=== PATIENT | male | born 1995 | race Caucasian/White ===

== ENCOUNTER 2020-04-06 05:44 | Emergency (ER) | payer BC, OTHER ==
[2020-04-06 05:54] VITALS: BP 164/114; PULSE 85
--- NOTE | 2020-04-06 06:07 | EDM.PDOC ---
ED HPI GENERAL MEDICAL PROBLEM - General Chief Complaint: ENT Problem Stated Complaint: NECK/JAW PAIN Time Seen by Provider: 04/06/20 05:59 Source of Information: Reports: Patient, RN Notes Reviewed History Limitations: Reports: No Limitations - History of Present Illness INITIAL COMMENTS - FREE TEXT/NARRATIVE: 24-year-old gentleman presents emergency department a complaint of dental pain, he states it started a couple days ago 1 painful tooth on his right side lower jaw he has not had any fevers he has had some swelling in that area as well as on the face no dental care Treatments [employer]: Reports: Acetaminophen Left Face/Facial Pain Score (Numeric/FACES): 8 - Related Data Allergies Allergy/AdvReac Type Severity Reaction Status Date / Time No Known Allergies Allergy Verified 04/06/20 05:52 Home Meds: Home Meds NK [No Known Home Meds] 08/24/15 [History] Past Medical History Other Musculoskeletal History: Cysts and bone spurs to bilateral feet, bone spur repair with hardware. - Past Surgical History Other Musculoskeletal Surgeries/Procedures:: Foot procedures to bilateral feet. ruptured acl right leg Social & Family History - Family History Family Medical History: Noncontributory - Tobacco Use Smoking Status *Q: Current Every Day Smoker Years of Tobacco use: 1 Packs/Tins Daily: 0.1 - Caffeine Use Caffeine Use: Reports: None - Recreational Drug Use Recreational Drug Use: No ED ROS ENT - Review of Systems Review Of Systems: See Below Constitutional: Denies: Fever HEENT: Reports: Dental Pain Respiratory: Reports: No Symptoms Cardiovascular: Reports: No Symptoms GI/Abdominal: Reports: No Symptoms : Reports: No Symptoms ED EXAM, ENT - Physical Exam Exam: See Below Text/Narrative:: Mucosa is moist and pink no erythema exudate known soft palate tongue is midline uvula is midline dentition is poor tooth #34 is broken, extreme tenderness around that area tenderness down into the neck on the right side otherwise no lymphadenopathy Exam Limited By: No Limitations General Appearance: Alert, WD/WN, No Apparent Distress Respiratory/Chest: No Respiratory Distress Course - Vital Signs Last Recorded V/S: Last Vital Signs Temp 96.2 F L 04/06/20 05:53 Pulse 85 04/06/20 05:53 Resp 16 04/06/20 05:53 BP 164/114 H 04/06/20 05:53 Pulse Ox 97 04/06/20 05:53 Departure - Departure Time of Disposition: 06:05 Disposition: Home, Self-Care 01 Condition: Fair Clinical Impression: Dental abscess - Discharge Information Instructions: Dental Abscess, [id number] Referrals: PCP,None [Primary Care Provider] - Additional Instructions: Take full course of antibiotics, use ibuprofen for baseline pain control use hydrocodone for breakthrough pain, please follow-up with the dental clinic April 07 8 AM in the morning Sepsis Event Note - Evaluation Sepsis Screening Result: No Definite Risk - Focused Exam Vital Signs: Vital Signs Temp Pulse Resp BP Pulse Ox 04/06/20 05:53 96.2 F L 85 16 164/114 H 97 Date Exam was Performed: 04/06/20 Time Exam was Performed: 06:02 - Assessment/Plan Plan: Assessment Acuity = acute Site and laterality = dental abscess tooth #32 Etiology = dental caries Manifestations = pain Location of injury = Home Lab values = none Plan Placed on amoxicillin 500 mg p.o. 3 times daily x10 days, hydrocodone 5/325 1 tab p.o. 3 times daily PRN total #10 referral is sent up to the dental clinic Tuesday 8 AM This note was dictated using [employer] voice recognition software please call with any questions on syntax or grammar.
== END 2020-04-06 06:14 | disposition home or self-care (01) ==
LOC: JP.ED 05:44
DX: K04.7 Periapical abscess without sinus (principal); F17.210 Nicotine dependence, cigarettes, uncomplicated
CPT/HCPCS: 99282

== ENCOUNTER 2021-11-16 01:05 | Emergency (ER) | payer BC ==
[2021-11-16 01:25] VITALS: BP 166/105; PULSE 87
--- NOTE | 2021-11-16 01:27 | EDM.PDOC ---
ED HPI GENERAL MEDICAL PROBLEM - General Chief Complaint: ENT Problem Stated Complaint: TOOTHACHE POSSIBLE ABSCESS Time Seen by Provider: 11/16/21 01:05 Source of Information: Reports: Patient History Limitations: Reports: No Limitations - History of Present Illness INITIAL COMMENTS - FREE TEXT/NARRATIVE: 26-year-old male with swelling and pain in his left mandible for the past 6 to 8 hours. He was at the dentist 2 weeks ago and has a fractured wisdom tooth, he has a follow-up appointment in a couple of weeks. It was not bothering him until it became inflamed earlier today. No fevers or chills. Onset: Gradual Duration: Hour(s): (Swelling and pain is increased over the past 8 hours) Location: Reports: Face (Left mandible) Quality: Reports: Ache Improves with: Reports: None Worsens with: Reports: Other (Chewing) Associated Symptoms: Reports: No Other Symptoms left sided dental Pain Score (Numeric/FACES): 4 - Related Data Allergies Allergy/AdvReac Type Severity Reaction Status Date / Time No Known Allergies Allergy Verified 11/16/21 01:18 Home Meds: Home Meds NK [No Known Home Meds] 08/24/15 [History] Past Medical History Musculoskeletal History: Reports: Other (See Below) Other Musculoskeletal History: Cysts and bone spurs to bilateral feet, bone spur repair with hardware. - Past Surgical History Musculoskeletal Surgical History: Reports: Other (See Below) Other Musculoskeletal Surgeries/Procedures:: Foot procedures to bilateral feet. ruptured acl right leg Social & Family History - Family History Family Medical History: No Pertinent Family History - Tobacco Use Tobacco Use Status *Q: Current Every Day Tobacco User Years of Tobacco use: 4 Packs/Tins Daily: 0.2 - Caffeine Use Caffeine Use: Reports: None - Recreational Drug Use Recreational Drug Use: No ED ROS ENT - Review of Systems Review Of Systems: See Below Constitutional: Denies: Fever, Chills HEENT: Reports: Dental Pain, Other (Left facial swelling) Respiratory: Reports: No Symptoms Cardiovascular: Reports: No Symptoms GI/Abdominal: Reports: No Symptoms Skin: Denies: Bruising, Rash, Erythema Neurological: Reports: No Symptoms Psychiatric: Reports: No Symptoms ED EXAM, ENT - Physical Exam Exam: See Below Exam Limited By: No Limitations General Appearance: Alert, No Apparent Distress (Looks uncomfortable but not distressed) Eye Exam: Bilateral Eye: Normal Inspection Ears: Normal TMs Mouth/Throat: Other (Patient has a temporary filling in the anterior aspect of the left mandibular wisdom tooth, a second molar is absent. There is significant edema and swelling of the gingiva and buccal mucosa over the left mandible. It is tender) Head: Facial Swelling (As above), Facial Tenderness Neck: Supple, Non-Tender. No: Lymphadenopathy (R), Lymphadenopathy (L) Respiratory/Chest: No Respiratory Distress, Lungs Clear Neurological: Alert, Oriented Psychiatric: Normal Affect, Normal Mood Course - Vital Signs Last Recorded V/S: Last Vital Signs Temp 98.8 F 11/16/21 01:25 Pulse 87 11/16/21 01:25 Resp 14 11/16/21 01:25 BP 166/105 H 11/16/21 01:25 Pulse Ox 98 11/16/21 01:25 - Re-Assessments/Exams Free Text/Narrative Re-Assessment/Exam: 11/16/21 06:34 Patient was started on penicillin 4 times a day, and given 6 Percocet for extra pain control and encouraged to continue with ibuprofen or naproxen. He should make an appointment with his dentist later this week for some x-rays and reevaluation, he can return to the emergency room if worsening despite treatment. Departure - Departure Time of Disposition: 01:26 Disposition: Home, Self-Care 01 Clinical Impression: Dental abscess - Discharge Information Instructions: Dental Abscess, [id number] Referrals: PCP,None [Primary Care Provider] - Forms: ED Department Discharge Care Plan Goals: Take 2 pills of antibiotic tonight, then 1 pill 4 times a day starting tomorrow morning. Ibuprofen or naproxen will help with pain, add the oxycodone if needed for breakthrough pain for the first 12 to 24 hours. Call the dentist to see if you can get worked in in the next couple of days for a recheck. Continue with the antibiotic until told to stop it or it is gone. Return to the emergency room if worsening despite treatment such as fever, vomiting the medication or increased swelling and pain. Sepsis Event Note (ED) - Focused Exam Vital Signs: Vital Signs Temp Pulse Resp BP Pulse Ox 11/16/21 01:25 98.8 F 87 14 166/105 H 98 11/16/21 01:24 98.8 F 87 14 166/105 H 98
== END 2021-11-16 01:28 | disposition home or self-care (01) ==
LOC: JP.ED 01:05
DX: K04.7 Periapical abscess without sinus (principal); Z72.0 Tobacco use
CPT/HCPCS: 99282

== ENCOUNTER 2022-03-14 03:13 | Emergency (ER) | payer SELFPAY ==
[2022-03-14] MEDS ORDERED: Proparacaine 0.5% Ophth Soln 15 ML Bottle EYERT ONE (03:19)
[2022-03-14 03:25] VITALS: BP 148/85; PULSE 83
== END 2022-03-14 04:01 | disposition home or self-care (01) ==
LOC: JP.ED 03:13
DX: T15.01XA Foreign body in cornea, right eye, initial encounter (principal)
CPT/HCPCS: 65220; 99281; 99283-25; A9270-GY

== ENCOUNTER 2024-07-01 13:18 | Emergency (ER) | payer SELFPAY ==
[2024-07-01 13:29] VITALS: BP 154/92; PULSE 83
[2024-07-01] MEDS: Ketorolac 30 MG/ML SDV IM ONE (13:55)
== END 2024-07-01 13:59 | disposition home or self-care (01) ==
LOC: JP.ED 13:18
DX: S02.5XXA Fracture of tooth (traumatic), initial encounter for closed fracture (principal); W20.8XXA Other cause of strike by thrown, projected or falling object, initial encounter; Y93.89 Activity, other specified
CPT/HCPCS: 96372; 99283; J1885